=== PATIENT | female | born 1965 | race Caucasian/White ===

== ENCOUNTER 2017-11-08 10:06 | Outpatient (CLI) | payer OTHER | END 2017-11-08 11:00 | disposition home or self-care (01) | LOC: NUCLEAR 10:06 | DX: E04.1 Nontoxic single thyroid nodule (principal) | CPT/HCPCS: 78013; A9512 ==

== ENCOUNTER 2017-12-08 08:51 | Outpatient (CLI) | payer OTHER | END 2017-12-08 08:53 | disposition home or self-care (01) | LOC: SONOGRAMA 08:51 | DX: E04.1 Nontoxic single thyroid nodule (principal) ==

== ENCOUNTER 2018-05-16 07:34 | Outpatient (CLI) | payer OTHER | END 2018-05-16 07:35 | disposition home or self-care (01) | LOC: SONOGRAMA 07:34 | DX: E04.1 Nontoxic single thyroid nodule (principal) ==

== ENCOUNTER 2018-12-14 08:05 | Outpatient (CLI) | payer OTHER | END 2018-12-14 08:09 | disposition home or self-care (01) | LOC: SONOGRAMA 08:05 | DX: E04.1 Nontoxic single thyroid nodule (principal) ==